=== PATIENT | female | born 1960 | race Caucasian/White ===

== ENCOUNTER 2018-06-05 06:18 | Day surgery (SDC) | payer BC ==
[2018-06-05] MEDS ORDERED: Sodium Tetradecyl Sulfate 1% 20 MG/2 ML SDV ONE (06:44)
[2018-06-05] MEDS ORDERED: Lidocaine 1% with EPINEPHrine 1:100,000 50 ML MDV ONE (06:44)
[2018-06-05] MEDS ORDERED: Sodium Chloride 0.9% 10 ML ONE (06:44)
[2018-06-05] MEDS ORDERED: Sodium Chloride 0.9% 1,000 ML IV SCH (07:00)
[2018-06-05] MEDS ORDERED: fentaNYL 100 MCG/2 ML SDV ONE (07:13)
[2018-06-05] MEDS ORDERED: Midazolam 1 MG/ML 2 ML SDV ONE (07:13)
[2018-06-05] MEDS ORDERED: Propofol 200 MG/20 ML SDV ONE (07:13)
[2018-06-05] MEDS ORDERED: Lidocaine 1% w/EPINEPHrine 50 ML, Sodium Bicarbonate 5 MEQ in Sodium Chloride 0.9% 950 ML INJECT ONE (07:45)
[2018-06-05] MEDS ORDERED: Sodium Chloride 0.9% 10 ML SDV ONE (08:11)
--- NOTE | 2018-06-05 10:41 | OR ---
DATE OF PROCEDURE: 06/05/2018 PROCEDURES: 1. Radiofrequency ablation of left greater saphenous vein. 2. Sclerotherapy of left leg, multiple. 3. Compression wrap, left. COMPLICATIONS: None. 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 PREOPERATIVE DIAGNOSIS: Venous insufficiency with inflammation and pain. POSTOPERATIVE DIAGNOSIS: Venous insufficiency with inflammation and pain. RISKS: Risks, benefits, alternatives, and limitations including, but not limited to infection, bleeding, DVT formation, nerve injury, and other risks not listed here were explained to the patient, who wished to proceed. ANESTHESIA: MAC/local. PROCEDURE IN DETAIL: The patient was placed in supine position. Left greater saphenous vein was readily identified and was accessed above the level of the lower leg. This was accessed using a 21-gauge needle with the 35,000th wire after anesthetizing with 1% lidocaine. This was then exchanged for a 7-Ivorian sheath. The RFA probe was then advanced to 3 cm from the saphenofemoral junction. Tumescent fluid was injected in 1 cm jacket around this and it was verified a second and a third time. After the probe was verified at 3 cm, direct even pressure was held as the probe was deployed x2 proximally and distally, and x1 in all other segments. The sheath and device were then removed. Direct even pressure was held and Dermabond was applied. Sclerotherapy was then performed of left leg using 0.33% sodium tetradecyl. This was drawn back to ensure intravascular injection only. Two-layer two-stage compression wrapping was then performed in a [id number] gradient using [id number] fashion. The patient tolerated the procedure well. Clement Banda MD /[id number]
== END 2018-06-05 10:00 | disposition home or self-care (01) ==
LOC: JP.SDS 06:18
PROVIDERS: ATTEND Surgery
DX: I83.812 Varicose veins of left lower extremity with pain (principal); I83.12 Varicose veins of left lower extremity with inflammation; Z87.891 Personal history of nicotine dependence; Z88.2 Allergy status to sulfonamides
CPT/HCPCS: 36475; J1642; J2250; J2704; J3010; J7030; J3490

== ENCOUNTER 2022-01-12 09:06 | Day surgery (SDC) | payer BC ==
[2022-01-12] MEDS ORDERED: Sodium Chloride 0.9% 1,000 ML IV SCH (09:45)
[2022-01-12] MEDS ORDERED: Propofol 200 MG/20 ML SDV ONE (10:07)
[2022-01-12] MEDS ORDERED: Midazolam 1 MG/ML 2 ML SDV ONE (10:07)
== END 2022-01-12 12:30 | disposition home or self-care (01) ==
LOC: JP.SDS 09:06
PROVIDERS: ATTEND Surgery
DX: Z12.11 Encounter for screening for malignant neoplasm of colon (principal); K57.30 Diverticulosis of large intestine without perforation or abscess without bleeding; Z88.2 Allergy status to sulfonamides
CPT/HCPCS: 45378; J2250; J2704; J7030